=== PATIENT | male | born 1945 | race Caucasian/White ===

== ENCOUNTER 2019-03-24 11:58 | Inpatient (IN) | payer OTHER, MEDICARE ==
[~2019-03-24] VITALS: Ht 172.7 cm; Wt 84.0 kg
[2019-03-24 12:06] VITALS: BP 155/95
[2019-03-24 12:29] LABS: BASO % 0.2 % (0.0-1.0); EOS # 0.4 10*3/uL (0.0-0.4); EOS % 4.4 % (1.0-4.0); HEMATOCRIT 43.8 % (42.0-52.0); HEMOGLOBIN 14.5 g/dl (14.0-18.0); LYMPH # 1.4 10*3/uL (1.3-4.4); LYMPH % 14.6 % (27.0-41.0); MEAN CELL VOLUME 91.3 fl (80.0-94.0); MEAN CORPUSCULAR HGB 30.2 pg (27.0-31.0); MEAN CORPUSCULAR HGB CONC 33.1 g/dl (33.0-37.0); MEAN PLATELET VOLUME 11.1 fl (9.6-12.3); MONO # 1.1 10*3/uL (0.1-1.0); MONO % 11.5 % (3.0-9.0); NEUT # 6.6 10*3/uL (2.3-7.9); NEUT % 68.8 % (47.0-73.0); PLATELET COUNT AUTOMATED 247 10*3/uL (130-400); RED CELL DISTRI WIDTH 13.3 % (0-14.5); WHITE BLOOD COUNT 9.6 10*3/uL (4.8-10.8)
[2019-03-24 12:39] LABS: ACT PARTIAL THROMBO TIME 30.3 SECONDS (20.0-32.1); INTERNATIONAL NORM RATIO 1.1 (2.0-3.5)
[2019-03-24 12:52] LABS: ALBUMIN 3.3 gm/dl (3.1-4.5); ALKALINE PHOSPHATASE 45 U/L (45-117); BUN 13 mg/dl (7-24); CHLORIDE 105 mmol/L (98-107); CREATININE 1.05 mg/dL (0.70-1.30); POTASSIUM 3.2 mmol/L (3.5-5.1); SGOT/AST 37 IU/L (3-35); SGPT/ALT 44 U/L (12-78); SODIUM 139 mmol/L (136-145); TOTAL PROTEIN 6.8 gm/dL (6.4-8.2)
[2019-03-24 12:55] LABS: TROPONIN I 0.057 ng/ml (<0.045)
[2019-03-24 13:45] VITALS: BP 148/90
[2019-03-24 14:28] VITALS: BP 172/98
[2019-03-24] MEDS ORDERED: LEVETIRACETAM500 MG PO (14:33)
[2019-03-24] MEDS ORDERED: AMLODIPINE BESYL5 MG PO (14:33)
[2019-03-24] MEDS ORDERED: METOPROLOL SUC100 M1 PO (14:33)
[2019-03-24] MEDS ORDERED: LIPITOR80 MG PO (14:34)
[2019-03-24] MEDS ORDERED: ASPIR LOW81 MG PO (14:34)
[2019-03-24] MEDS ORDERED: LISINOPRIL20 MG PO (14:34)
[2019-03-24] MEDS ORDERED: VITAMIN D22000 UNIT PO (14:35)
[2019-03-24] MEDS ORDERED: FUROSEMIDE20 M1 PO (14:35)
[2019-03-24] MEDS ORDERED: OMEPRAZOLE20 M2 PO (14:36)
[2019-03-24] MEDS ORDERED: XARELTO20 M1 PO (14:36)
[2019-03-24 16:00] VITALS: BP 138/91
[2019-03-24 17:01] VITALS: BP 142/85
[2019-03-24 20:00] VITALS: BP 130/77
[2019-03-25] VITALS: BP 107/67
[2019-03-25 07:40] LABS: BUN 12 mg/dl (7-24); CHLORIDE 103 mmol/L (98-107); CHOLESTEROL 128 mg/dL (<200); CREATININE 1.11 mg/dL (0.70-1.30); PHOSPHOROUS 3.2 mg/dL (2.5-4.9); SODIUM 139 mmol/L (136-145); TRIGLYCERIDES 180 mg/dl (<150); VLDL CHOLESTEROL 36 mg/dL (6-40)
[2019-03-25 07:42] LABS: HDL CHOLESTEROL 36 mg/dl (40-60); LDL CHOLESTEROL 56 mg/dL (9-159)
[2019-03-25 07:51] LABS: POTASSIUM 4.2 mmol/L (3.5-5.1)
[2019-03-25 12:00] VITALS: BP 116/63
[2019-03-25 16:00] VITALS: BP 120/53
[2019-03-25 20:00] VITALS: BP 127/73; BP 138/70
[2019-03-26] VITALS: BP 124/70
[2019-03-26 08:00] VITALS: BP 142/76
[2019-03-26 12:00] VITALS: BP 95/59
[2019-03-26 16:00] VITALS: BP 104/63
[2019-03-26 20:00] VITALS: BP 126/76
[2019-03-27] VITALS: BP 115/72
[2019-03-27 07:11] LABS: BASO % 0.4 % (0.0-1.0); EOS # 0.2 10*3/uL (0.0-0.4); EOS % 3.1 % (1.0-4.0); HEMATOCRIT 39.9 % (42.0-52.0); HEMOGLOBIN 13.2 g/dl (14.0-18.0); LYMPH # 2.2 10*3/uL (1.3-4.4); LYMPH % 29.4 % (27.0-41.0); MEAN CELL VOLUME 91.5 fl (80.0-94.0); MEAN CORPUSCULAR HGB 30.3 pg (27.0-31.0); MEAN CORPUSCULAR HGB CONC 33.1 g/dl (33.0-37.0); MEAN PLATELET VOLUME 11.4 fl (9.6-12.3); MONO # 0.8 10*3/uL (0.1-1.0); MONO % 10.1 % (3.0-9.0); NEUT # 4.2 10*3/uL (2.3-7.9); NEUT % 56.6 % (47.0-73.0); PLATELET COUNT AUTOMATED 266 10*3/uL (130-400); RED BLOOD COUNT 4.36 10*6/uL (4.50-5.90); RED CELL DISTRI WIDTH 13.4 % (0-14.5); WHITE BLOOD COUNT 7.4 10*3/uL (4.8-10.8)
[2019-03-27 08:00] VITALS: BP 110/74
== END 2019-03-27 17:37 | disposition home or self-care (01) | DRG 206 ==
LOC: ED 11:58 → 4E 13:32 → EDHOLD 13:32 → 4E 14:11
PROVIDERS: Emergency Medicine; Student in an Organized Health Care Education/Training Program; ADMIT Family Medicine
DX: M94.0 Chondrocostal junction syndrome [Tietze] (principal); I50.22 Chronic systolic (congestive) heart failure; I48.20 Chronic atrial fibrillation, unspecified; E87.2 Acidosis; I13.0 Hypertensive heart and chronic kidney disease with heart failure and stage 1 through stage 4 chronic kidney disease, or unspecified chronic kidney disease; I47.2 Ventricular tachycardia; I42.9 Cardiomyopathy, unspecified; N18.3 Chronic kidney disease, stage 3 (moderate); E78.5 Hyperlipidemia, unspecified; E87.6 Hypokalemia; I25.709 Atherosclerosis of coronary artery bypass graft(s), unspecified, with unspecified angina pectoris; Z95.1 Presence of aortocoronary bypass graft; Z86.73 Personal history of transient ischemic attack (TIA), and cerebral infarction without residual deficits; Z79.01 Long term (current) use of anticoagulants; Z79.899 Other long term (current) drug therapy; Z95.5 Presence of coronary angioplasty implant and graft; Z79.82 Long term (current) use of aspirin